=== PATIENT | male | born 1925 | race Caucasian/White ===

== ENCOUNTER → 2016-07-01 | Outpatient (CLI) | payer MEDICARE, BC ==
[~2016-07-01] MED LIST: CENTRUM SILVER1 EAC1 PO; COUMADIN **IA2.5 MG PO; DIGOXIN125 MCG PO; LOPRESSOR25 MG PO; NORCO 5-325 TA1 EACH PO; ZESTRIL2.5 MG PO; ZOCOR40 MG PO
[2016-07-01 12:53] LABS: BASOPHIL % 0.4 %; EOSINOPHIL # 0.1 K/uL (0.0-0.5); EOSINOPHIL % 0.9 %; HEMOGLOBIN 13.5 g/dL (11.0-16.0); IMMATURE GRANULOCYTE % 0.3 %; LYMPHOCYTE # 1.7 K/uL (0.8-4.0); MCH 31.9 pg (27.0-34.0); MCHC 32.1 gm/dL (32.0-36.5); MCV 99.3 fl (83.0-98.0); MONOCYTE # 0.7 K/uL (0.0-1.0); MONOCYTE % 9.5 %; MPV 10.3 fl (9.4-12.4); NEUTROPHIL # (ANC) 4.5 K/uL (1.4-9.0); NEUTROPHIL % 64.9 %; NRBC % 0 /100WBC (0-0.00); PLATELET COUNT 192 K/uL (150-450); RBC 4.23 M/uL (3.50-5.50); RDW-CV 13.2 % (11.9-14.6); WBC 6.9 K/uL (4.0-11.0)
[2016-07-01 13:10] LABS: ANION GAP 12.1 (10.0-19.0); CALCIUM 8.9 mg/dL (8.5-10.5); CREATININE 1.3 mg/dL (0.6-1.3); POTASSIUM 4.1 mMol/L (3.7-5.1); TOTAL BILIRUBIN 0.9 mg/dL (0.0-1.5); TOTAL PROTEIN 7.3 g/dL (6.0-8.4)
== END | disposition disaster alternative care site (69) ==
LOC: LNHI 12:43
PROVIDERS: Internal Medicine Cardiovascular Disease
DX: I48.3 Typical atrial flutter (principal); E78.2 Mixed hyperlipidemia; R53.83 Other fatigue

== ENCOUNTER → 2016-07-08 | Day surgery (SDC) | payer MEDICARE, BC ==
[~2016-07-08] VITALS: Ht 167.6 cm; Wt 64.6 kg
--- NOTE | ~2016-07-08 | OR ---
PATIENT'S NAME: JOSE LUIS JACKSON [facility] AGE: 89 [address] ROOM: [place] [id number] LOCATION: [facility] [place] [facility] [place] ADMIT DATE: 07/08/2016 OR/Procedure Report DISCHARGE DATE: FAMILY PHYSICIAN: PHYSICIAN, NO ATTENDING PHYSICIAN: Darian Solorzano SURGEON: Darian Solorzano DO SNACK STEWARD: DATE OF PROCEDURE: 07/08/2016 PREOPERATIVE DIAGNOSIS: Dual-chamber pacemaker at normal battery depletion. POSTOPERATIVE DIAGNOSIS: Dual-chamber pacemaker at normal battery depletion. PROCEDURE: Replacement of dual-chamber generator BRIEF HISTORY: Mr. Jackson is an 89-year-old white male with the above-noted diagnosis, who has been brought to the operative suite today after informed consent was obtained for replacement of his generator. His previous incision had been marked with a surgical marker and then sterilely prepped and draped. 1% lidocaine was used to infiltrate the incision after appropriate IV sedation was achieved, and the incision was opened. Electrocautery was used for hemostasis, and the pocket was opened. The leads and generator were removed from the pocket. The old generator, which is a [employer], model S603, serial number [id number], originally placed on 12/13/2007, was removed and the new generator which is a [employer], model L111, serial number [id number] was connected to each lead. Leads and generator were placed back into the pocket. Appropriate sensing and pacing was noted. Thresholds were adequate for the ventricular lead. The atrial lead showed the patient to be in atrial fibrillation which is chronic. The incision was closed in layered fashion with 2-0 Vicryl and 4-0 Monocryl. Pressure dressings were applied secondary to the patient being on chronic anticoagulation. He tolerated the procedure well and was transferred back to the recovery room in stable condition. DO JODI THOMAS/stephanyl /[id number] d: 07/08/162057 t: 07/09/16 1311, OPERATIVE SUMMARY
[2016-07-08 08:08] LABS: INR - (THERAPEUTIC) 2.27 (0.92-1.07)
[2016-07-08 08:09] LABS: ALBUMIN 3.8 gm/dL (3.5-5.0); ANION GAP 11.2 (10.0-19.0); CALCIUM 8.7 mg/dL (8.5-10.5); CREATININE 1.3 mg/dL (0.6-1.3); PHOSPHORUS 2.6 mg/dL (2.5-4.9); POTASSIUM 4.2 mMol/L (3.7-5.1)
== END | disposition disaster alternative care site (69) ==
LOC: GPOC 07-03 15:00 → GSDC 06:36
PROVIDERS: Thoracic Surgery (Cardiothoracic Vascular Surgery)
PROC: 0JPT0PZ Removal of Cardiac Rhythm Related Device from Trunk Subcutaneous Tissue and Fascia, Open Approach (ICD-10-PCS; principal; 2016-07-08)
PROC: 0JH606Z Insertion of Pacemaker, Dual Chamber into Chest Subcutaneous Tissue and Fascia, Open Approach (ICD-10-PCS; 2016-07-08)
DX: Z45.010 Encounter for checking and testing of cardiac pacemaker pulse generator [battery] (principal); I48.2 Chronic atrial fibrillation; I48.92 Unspecified atrial flutter; I50.9 Heart failure, unspecified; I49.5 Sick sinus syndrome; Z87.891 Personal history of nicotine dependence; Z79.899 Other long term (current) drug therapy
CPT/HCPCS: C1785; J0690; J2001; J7030